=== PATIENT | female | born 1965 | race Caucasian/White ===

== ENCOUNTER 2019-09-10 09:37 | Outpatient (CLI) | payer MEDICAID ==
[2019-09-10 15:07] LABS: #Basophils 0.1 thou/uL (0.0-0.2); #Eosinphils 0.3 thou/uL (0.0-0.7); #Lymphocytes 2.5 thou/uL (1.20-3.40); #Monocytes 0.6 thou/uL (0.11-0.59); #Neutrophils 4.3 thou/uL (1.40-6.50); %Basophils 0.9 % (0.0-1.0); %Eosinophils 3.3 % (0.0-10.0); %Lymphocytes 32.1 % (21.0-51.0); %Monocytes 8.1 % (0.0-10.0); %Neutrophils 55.6 % (42.0-75.0); Hemoglobin 12.1 g/dL (12.0-16.0); Mean Corpuscular HGB CONC 33.7 g/dL (32.0-36.0); Mean Corpuscular Hemoglobin 28.3 pg (27.0-31.0); Mean Corpuscular Volume 83.9 fL (78.0-98.0); Mean Platelet Volume 8.3 fL (7.4-10.4); Platelet Count 260 thou/uL (130-400); Red Blood Cell (RBC) Count 4.26 mill/uL (4.20-5.40); White Blood Cell (WBC) Count 7.7 thou/uL (4.8-10.8)
[2019-09-10 15:25] LABS: Anion Gap 10 mmol/L (10-20); BUN (Urea Nitrogen) 22 mg/dL (9.8-20.1); Calc. Creatinine Clearance 0 mL/min (70-130); Calcium 10.3 mg/dL (7.8-10.44); Carbon Dioxide 27 mmol/L (22-29); Chloride 111 mmol/L (98-107); Estimated GFR-MDRD 57; Glucose 82 mg/dL (70-105); Potassium 4.1 mmol/L (3.5-5.1); Sodium 144 mmol/L (136-145)
== END 2019-09-10 09:38 | disposition home or self-care (01) ==
LOC: LABBT 09:37
PROVIDERS: ATTEND Specialist
DX: Z01.812 Encounter for preprocedural laboratory examination (principal); C50.911 Malignant neoplasm of unspecified site of right female breast; Z17.0 Estrogen receptor positive status [ER+]
CPT/HCPCS: 80048; 85025

== ENCOUNTER 2019-09-11 06:54 | Observation (INO) | payer MEDICAID ==
[2019-09-10 14:23] VITALS: BMI 33.0
[2019-09-11] MEDS ORDERED: Ketorolac Tromethamine 30 MG/ML VIAL ONE ×2 (09:54→11:29)
[2019-09-11] MEDS ORDERED: Acetaminophen 500 MG TAB ONE (09:55)
--- NOTE | 2019-09-11 09:57 | NM ---
Lymphoscintigraphy right breast HISTORY: Right breast cancer. FINDINGS: After spine procedure and answering all questions, the anterior aspect of the right breast was prepped. Clean technique was used to carefully injected a total of 1 cc liquid containing 431 uCi technetium 99 and filtered sulfur colloid into the deep skin tissues at the 12:00, 3:00, 6:00, an d 9:00 periareolar positions of the right breast. Injection sites were massaged by the patient and imaging performed. Immediate images show increased radiotracer and a focal area at the axillary tail of the right breast . Patient was sent to day surgery in good condition. IMPRESSION : Technically successful lymphoscintigraphy right breast revealing single sentinel lymph node at the ax illary tail/axilla.
[2019-09-11] MEDS ORDERED: Ondansetron PF 4 MG/2 ML Vial ONE ×2 (11:29→11:39)
[2019-09-11] MEDS ORDERED: Lidocaine 1% PF 5 ML VIAL ONE (11:29)
[2019-09-11] MEDS ORDERED: Rocuronium Bromide 10 MG/ML (10ML VIAL) ONE (11:29)
[2019-09-11] MEDS ORDERED: PROPOFOL 200 MG/20 ML VIAL ONE (11:29)
[2019-09-11] MEDS ORDERED: PHENYLEPHRINE-NS 100 MCG/ML 10 ML SYRINGE ONE (11:29)
[2019-09-11] MEDS ORDERED: Scopolamine 1.5 mg/72 hour Patch ONE (11:39)
[2019-09-11] MEDS ORDERED: Midazolam HCl 2 mg/2 ml Vial ONE (11:39)
[2019-09-11] MEDS ORDERED: Famotidine/PF 20 mg/2ml Vial ONE (11:39)
[2019-09-11] MEDS ORDERED: Fentanyl 100 MCG/2 ML VIAL ONE ×3 (12:18→16:34)
[2019-09-11] MEDS ORDERED: HYDROmorphone 2 MG/ML VIAL ONE (12:18)
[2019-09-11] MEDS ORDERED: SUGAMMADEX SODIUM 200 MG/2 ML VIAL ONE (12:19)
[2019-09-11] MEDS ORDERED: Bupivacaine 0.25% HCL 30 ML VIAL ONE ×2 (12:23→12:24)
[2019-09-11] MEDS ORDERED: Lidocaine 1% w/Epinephrine 1:100K 20 ML VIAL ONE ×2 (12:23→12:24)
[2019-09-11] MEDS ORDERED: Isosulfan Blue 50 MG/5 ML VIAL ONE ×2 (12:23→12:24)
[2019-09-11] MEDS ORDERED: Ketamine 50 MG/ML (10ML VIAL) ONE (12:43)
[2019-09-11] MEDS ORDERED: Promethazine HCl 25 MG/ML VIAL IM PRN (15:59)
[2019-09-11] MEDS ORDERED: Ondansetron HCl/PF 4 MG/2 ML Vial IVP PRN (15:59)
[2019-09-11] MEDS ORDERED: Promethazine HCl 25 MG/ML VIAL SLOW IVP PRN (15:59)
[2019-09-11] MEDS ORDERED: Promethazine HCl 25 MG/ML VIAL ONE (16:08)
[2019-09-11] MEDS ORDERED: hydrALAZINE 20 MG/ML VIAL SLOW IVP PRN (17:25)
[2019-09-11] MEDS ORDERED: Ondansetron PF 4 MG/2 ML Vial IVP PRN (17:25)
[2019-09-11] MEDS ORDERED: HYDROcodone/Acetaminophen 10/325 mg Tablet PO PRN (17:25)
[2019-09-11] MEDS ORDERED: Dextrose 50% Abboject 50 ML SYRINGE SLOW IVP PRN (17:25)
[2019-09-11] MEDS ORDERED: Dextrose 5% in Water 1,000 ML IV PRN (17:25)
[2019-09-11] MEDS ORDERED: Lorazepam 2 MG/ML VIAL SLOW IVP PRN (17:25)
[2019-09-11] MEDS: HYDROcodone/Acetaminophen 10/325 mg Tablet PO PRN (17:49)
[2019-09-11] MEDS: D5 1/2 NS w/20 mEq KCL 1,000 ML IV SCH (17:49)
[2019-09-11] MEDS ORDERED: Hydrochlorothiazide 25 MG TAB PO PRN (17:51)
[2019-09-11] MEDS ORDERED: Methocarbamol 500 MG TAB PO PRN (17:52)
[2019-09-11] MEDS ORDERED: hydrOXYzine 25 MG TAB PO PRN (17:52)
[2019-09-11] MEDS: Carvedilol 25 MG TAB PO SCH (19:51)
[2019-09-11] MEDS: Famotidine 20 MG TAB PO SCH (19:51)
[2019-09-11] MEDS: Gabapentin 300 MG CAP PO SCH (19:51)
[2019-09-11] MEDS: Morphine 4 MG/ML VIAL SLOW IVP PRN ×2 (20:00→23:09)
[2019-09-11] MEDS ORDERED: ASENAPINE 10 MG PO SCH (21:00)
[2019-09-11] MEDS ORDERED: Prevnar 13-Val Conj/PF 0.5 ML SYRINGE IM ONE (21:00)
[2019-09-11] MEDS ORDERED: FLUoxetine HCl 10 MG CAP PO SCH (21:00)
[2019-09-11] MEDS ORDERED: Atorvastatin Calcium 40 MG TAB PO SCH (21:00)
[2019-09-11] MEDS ORDERED: Lisinopril 20 MG TAB PO SCH (21:00)
[2019-09-12] MEDS: D5 1/2 NS w/20 mEq KCL 1,000 ML IV SCH ×2 (00:51→09:10)
[2019-09-12] MEDS: HYDROcodone/Acetaminophen 10/325 mg Tablet PO PRN ×2 (02:33→09:16)
[2019-09-12] MEDS: Morphine 4 MG/ML VIAL SLOW IVP PRN ×2 (04:58→11:05)
[2019-09-12 06:40] LABS: #Eosinphils 0.2 thou/uL (0.0-0.7); #Lymphocytes 2.6 thou/uL (1.20-3.40); #Monocytes 0.7 thou/uL (0.11-0.59); #Neutrophils 5.2 thou/uL (1.40-6.50); %Basophils 0.4 % (0.0-1.0); %Eosinophils 2.1 % (0.0-10.0); %Lymphocytes 29.9 % (21.0-51.0); %Neutrophils 59.6 % (42.0-75.0); Hemoglobin 10.4 g/dL (12.0-16.0); Mean Corpuscular HGB CONC 33.1 g/dL (32.0-36.0); Mean Corpuscular Hemoglobin 28.1 pg (27.0-31.0); Mean Corpuscular Volume 85.2 fL (78.0-98.0); Mean Platelet Volume 8.2 fL (7.4-10.4); Platelet Count 235 thou/uL (130-400); RBC Distribution Width 11.8 % (11.5-14.5); Red Blood Cell (RBC) Count 3.69 mill/uL (4.20-5.40); White Blood Cell (WBC) Count 8.8 thou/uL (4.8-10.8)
[2019-09-12] MEDS ORDERED: Aspirin 81 mg Enteric Coated Tablet PO SCH (09:00)
[2019-09-12] MEDS: Famotidine 20 MG TAB PO SCH (09:12)
[2019-09-12] MEDS: Gabapentin 300 MG CAP PO SCH (09:12)
[2019-09-12] MEDS: Carvedilol 25 MG TAB PO SCH (09:29)
[2019-09-12 11:20] VITALS: BP 111/66; TEMP 98.3
--- NOTE | 2019-09-14 08:01 | OP ---
DATE OF PROCEDURE: 09/11/2019 PREOPERATIVE DIAGNOSIS: Right breast cancer. POSTOPERATIVE DIAGNOSIS: Right breast cancer. PROCEDURE PERFORMED: Bilateral simple mastectomy with right axillary sentinel lymph node biopsy. ANESTHESIA: General endotracheal. INDICATION: The patient is a 54-year-old white female. She was recently diagnosed with a new right breast cancer. After discussing options with her, she had initially elected to proceed with a right mastectomy. Genetic testing was pending on her at the time of the surgery. After further consideration, she had decided that she would prefer a bilateral simple mastectomy largely secondary to the large size of her breasts that would leave her very asymmetrical and imbalanced. She was not interested in reconstructive surgery. DESCRIPTION OF OPERATION: Informed consent was obtained. The patient had preoperative lymphoscintigraphy which demonstrated right axillary sentinel lymph node. She was then taken to the operating room, where general endotracheal anesthesia was obtained with the patient in supine position. Bilateral breasts and axilla were prepped with ChloraPrep and draped in sterile fashion. Attention was turned first to the right breast. An elliptical incision was created across the right breast to include the nipple-areolar complex. The lateral extended incision was at the inferior axilla. Dissection was carried through skin and subcutaneous tissue using the plasma blade. All incisions and dissection were carried out with the plasma blade. Attention was turned to the axilla. Dissection was carried through the superficial fascia of the right axilla. Neoprobe was utilized to identify areas of maximum radio intensity. I had also infiltrated 3 mL of isosulfan blue dye in the periareolar subdermal tissues and massaged the breast for 5 minutes. I was able to identify 3 separate lymph nodes that were stained with blue and radioactive. These were each dissected circumferentially and all investing lymphatics were divided between clamps and 3-0 silk ties. The three lymph nodes were passed off the field for touch prep. They all proved to be negative for tumor cells. Attention was then turned to the left breast. An elliptical incision was created across the left breast extending from the sternal border medially into the axilla laterally. Flaps were raised superiorly and inferiorly down to the chest wall. The breast was then mobilized off the chest wall in a medial to lateral fashion. The tissue was divided lateral to the pectoral muscles. The patient had a large breast and attempts were made to remove additional subcutaneous tissue as necessary to avoid large axillary bulges. Breast was passed off the field and tagged for orientation. Lengthy efforts were carried out to tailor the skin edges to avoid redundant tissue. The wound was irrigated with saline. All irrigant was aspirated. A #19 round fluted drain was placed exiting laterally and inferiorly and secured with 3-0 nylon suture. The skin edges were then approximated with 3-0 Vicryl and skin jeannine. Attention was then returned to the right breast. The elliptical incision had already been made. The flaps were then raised superiorly and inferiorly and the breast was swept off the chest wall. The malignancy was never seen or palpated. Since the sentinel lymph nodes were negative, no further effort was made to remove axillary tissue. The breast was swept off, passed off to pathology after oriented with suture. Again, extensive efforts were made to tailor the skin edges to avoid redundancy. This was challenging secondary to the large size of her breasts. The skin edges were then again approximated with 3-0 Vicryl and skin jeannine. A drain was placed as well. Occlusive dressings were placed over both drain exit sites. Soft gauze was placed on the chest wall and the patient was wrapped circumferentially with a Faiza wrap. There were no complications. The patient tolerated the procedure well. Blood loss was minimal. She was taken to recovery room in stable condition. Job ID: [id number]
== END 2019-09-12 13:33 | disposition home or self-care (01) ==
LOC: SDC 06:54 → SURG A 17:25
PROVIDERS: ADMIT Specialist; ATTEND Specialist
PROC: 0HTV0ZZ Resection of Bilateral Breast, Open Approach (ICD-10-PCS; principal; 2019-09-12)
PROC: 07B53ZX Excision of Right Axillary Lymphatic, Percutaneous Approach, Diagnostic (ICD-10-PCS; 2019-09-12)
DX: C50.911 Malignant neoplasm of unspecified site of right female breast (principal); I11.0 Hypertensive heart disease with heart failure; I50.9 Heart failure, unspecified; E78.00 Pure hypercholesterolemia, unspecified; G89.29 Other chronic pain; M54.9 Dorsalgia, unspecified; Z17.0 Estrogen receptor positive status [ER+]; Z79.82 Long term (current) use of aspirin; Z79.899 Other long term (current) drug therapy
CPT/HCPCS: 36415; 78195; 85025; 88307; 88309; 88331; 88332; 88342; 96361; 96374; 96376; A9541; G0378; J0690; J1170; J1885; J2001; J2250; J2270; J2405; J2550; J2704; J3010; J3480; Q9968; S0020; S0028